=== PATIENT | female | born 1955 | race African-American/Black ===

== ENCOUNTER 2023-11-24 11:31 | Emergency (ER) | payer MEDICARE ==
[~2023-11-24] VITALS: Ht 170.2 cm; Wt 67.0 kg
[2023-11-24 11:33] VITALS: TEMP 98.6; O2SAT 99
[2023-11-24 12:29] LABS: BASOPHILS % 0.3 % (0.0-2.0); EOSINOPHILS % 3.5 % (0.0-5.0); HEMATOCRIT. 38.3 % (36.0-48.0); LYMPHOCYTES % 25.7 % (20.0-50.0); MEAN CORPUSCULAR HEMOGLOBIN 30.1 pg (28.0-32.0); MEAN CORPUSCULAR HGB CONC 33.8 g/dL (31.0-37.0); MEAN CORPUSCULAR VOLUME 89.1 fL (81.0-99.0); MEAN PLATELET VOLUME 8.1 fl (7.4-10.4); MONOCYTES % 7.8 % (2.0-8.0); NEUTROPHILS % 62.7 % (40.0-76.0); PLATELET 319 x1000/uL (130-400); WHITE BLOOD COUNT 4.5 x1000/uL (4.5-11.0)
[2023-11-24 12:34] LABS: CHLORIDE 105 mEq/L (98-107); SODIUM 136 mEq/L (136-145)
[2023-11-24 12:35] LABS: CALCIUM 10.1 mg/dL (8.7-10.4); CARBON DIOXIDE 24 mEq/L (21-32)
[2023-11-24 12:40] LABS: CREATININE 1.2 mg/dL (0.6-1.0); GLUCOSE 98 mg/dL (70-105); UREA NITROGEN BLOOD 15 mg/dL (9-23)
[2023-11-24 12:42] LABS: ALANINE AMINOTRANSFERASE 14 IU/L (10-49); ALBUMIN 4.9 g/dL (3.2-4.8); ASPARTATE AMINOTRANSFERASE 29 IU/L (<34)
[2023-11-24 12:43] LABS: BILIRUBIN TOTAL 0.4 mg/dL (0.1-1.0); PROTEIN TOTAL 8.9 g/dL (6.0-8.3)
[2023-11-24 12:58] LABS: BILIRUBIN DIRECT < 0.1 mg/dL (<=3.0)
[2023-11-24] MEDS ORDERED: ONDANSETRON HCL 4MG/2ML INJ IV STA (13:24)
[2023-11-24] MEDS ORDERED: KETOROLAC 30MG/ML VIAL IV STA (13:24)
[2023-11-24] MEDS: SODIUM CHLORIDE 0.9% 1,000 ML IV ONE (15:26)
[2023-11-24] MEDS: KETOROLAC 15MG/ML VIAL IV NR (15:35)
[2023-11-24] MEDS: ONDANSETRON HCL 4MG/2ML INJ IV NR (15:35)
[2023-11-24 16:40] VITALS: BP 100/53; PULSE 90; RESP 14; O2SAT 100
== END 2023-11-24 16:41 | disposition home or self-care (01) ==
LOC: ER 11:43
DX: R10.84 Generalized abdominal pain (principal); R11.2 Nausea with vomiting, unspecified; R19.7 Diarrhea, unspecified; E03.9 Hypothyroidism, unspecified
CPT/HCPCS: 99285; 74176; 96374; 96361; 96375; 80076; 80048; 83690; 85025; 36415; J1885; J2405; J7030; C1893